=== PATIENT | female | born 1970 | race Caucasian/White ===

== ENCOUNTER → 2017-01-09 | Outpatient (CLI) | payer MEDICARE ==
[~2017-01-09] MED LIST: ASPIRIN PO; ASPIRIN81 MG; BACTRIM 400-801 TA1 PO; BENZTROPINE MESY2 MG PO; BUSPAR15 M3 PO; CLOZAPINE200 MG PO; CLOZAPINE50 MG PO; CLOZARIL; CLOZARIL PO; DESYREL50 MG PO; GLUCOPHAGE500 MG PO; GLUCOTROL PO; KEFLEX500 MG PO; KLONOPIN PO; LEXAPRO20 MG PO; LIPITOR80 MG PO; LISINOPRIL5 MG PO; LUVOX100 MG PO; METFORMIN PO; METOPROLOL SUCC25 MG PO; NEXIUM PO; OMEPRAZOLE40 MG PO; PLAVIX PO; PRILOSEC PO; PROZAC PO; PYRIDIUM PO; RISPERDAL3 MG PO; RISPERDAL4 MG PO; RISPERIDONE PO; SERZONE PO; VISCOUS LIDOCAINE PO; VITAMIN D250000 UNIT PO
== END | disposition home or self-care (01) ==
LOC: SLAB 13:06
PROVIDERS: Registered Nurse Psychiatric/Mental Health, Adult
DX: F25.1 Schizoaffective disorder, depressive type (principal); F41.1 Generalized anxiety disorder
CPT/HCPCS: 36415; 82306; 82607; 84443

== ENCOUNTER → 2017-01-16 | Outpatient (CLI) | payer MEDICARE ==
[2017-01-16 13:19] LABS: BASOPHIL% 0.4 % (0-2.5); EOSINOPHIL% 0.3 % (0.0-7.0); HEMATOCRIT 38.1 % (35.0-45.0); HEMOGLOBIN 12.4 gm/dL (12.0-16.0); LYMPHOCYTE# 1.6 X10e3 (1.0-3.5); LYMPHOCYTE% 25.7 % (17.0-45.0); MEAN CELL VOLUME 85.9 FL (83-96); MEAN CORPUSCULAR HEMOGLOBIN 28.1 PG (28-34); MEAN CORPUSCULAR HGB CONC 32.7 g/dL (30-36); MEAN PLATELET VOLUME 8.4 FL (6.5-11.5); MONOCYTE# 0.3 X10e3 (0-1.0); MONOCYTE% 5.8 % (3.0-12.0); NEUTROPHIL# 4.1 X10e3 (1.5-7.1); NEUTROPHIL% 67.8 % (40-75); PLATELET COUNT 164 X10e3 (140-420); RED BLOOD COUNT 4.44 X10e (3.90-5.30); RED CELL DISTRIBUTION WIDTH 16.2 % (11.0-15.5); WHITE BLOOD COUNT 6.1 X10e3 (4.0-10.5)
[2017-01-16 13:20] LABS: DIFF IND NO
== END | disposition home or self-care (01) ==
LOC: SLAB 12:52
PROVIDERS: Registered Nurse Psychiatric/Mental Health, Adult
DX: F25.1 Schizoaffective disorder, depressive type (principal)
CPT/HCPCS: 36415; 85025

== ENCOUNTER → 2017-02-05 | Outpatient (CLI) | payer MEDICARE ==
[2017-02-05 14:35] LABS: BASOPHIL% 0.8 % (0-2.5); EOSINOPHIL% 0.2 % (0.0-7.0); HEMATOCRIT 39.1 % (35.0-45.0); HEMOGLOBIN 12.9 gm/dL (12.0-16.0); LYMPHOCYTE# 1.8 X10e3 (1.0-3.5); LYMPHOCYTE% 29.9 % (17.0-45.0); MEAN CELL VOLUME 84.3 FL (83-96); MEAN CORPUSCULAR HEMOGLOBIN 27.9 PG (28-34); MEAN PLATELET VOLUME 7.3 FL (6.5-11.5); MONOCYTE# 0.3 X10e3 (0-1.0); MONOCYTE% 5.5 % (3.0-12.0); NEUTROPHIL# 3.9 X10e3 (1.5-7.1); NEUTROPHIL% 63.6 % (40-75); PLATELET COUNT 196 X10e3 (140-420); RED BLOOD COUNT 4.63 X10e (3.90-5.30); RED CELL DISTRIBUTION WIDTH 15.1 % (11.0-15.5); WHITE BLOOD COUNT 6.1 X10e3 (4.0-10.5)
[2017-02-05 14:37] LABS: DIFF IND NO
== END | disposition home or self-care (01) ==
LOC: SLAB 14:23
PROVIDERS: Registered Nurse Psychiatric/Mental Health, Adult
DX: F25.1 Schizoaffective disorder, depressive type (principal)
CPT/HCPCS: 36415; 85025

== ENCOUNTER 2017-03-05 19:01 | Observation (INO) | payer MEDICARE, OTHER ==
--- NOTE | ~2017-03-05 | DS ---
Unit #: [id number] #: [id number] Patient: KELBY LI [id number] [address] [place], [place] [address] [id number] I MR#: [id number] NAME: KELBY LI ROOM: 468 Age: 46 Sex: F Admission Date: 03/05/2017 : 1970 Discharge Date: 03/06/2017 Attending Physician: Ericka Ochao M.D. Primary Care Physician: Selma Aguirre M.D. DISCHARGE SUMMARY PRINCIPAL DIAGNOSES 1. Hypotension secondary to dehydration. 2. Acute kidney injury, prerenal: Discharge creatinine 1.2. 3. Lightheadedness secondary to #1 with perhaps some underlying labyrinthitis. 4. Lactic acidosis resolved, secondary to hypotension and metformin. 5. Schizoaffective disorder. 6. Diabetes mellitus type 2, noninsulin requiring. 7. Gastroesophageal reflux disease. 8. History of hypertension. 9. Coronary artery disease with 80% stenosis of the ostium of the second diagonal branch. This is not amenable to intervention. 10. Gastroesophageal reflux disease. 11. Hyperlipidemia. CLINICAL HISTORY/HOSPITAL COURSE Ms. Li is a 46-year-old female who presents to the emergency department with hypotension. Please refer to H and P for further details. The patient was given IV fluids and felt better. She was placed in observation for further evaluation. The patient's lisinopril was held. Today, orthostatic blood pressures are normal. She had a repeated episode of lightheadedness when changing position in bed but blood pressure is now running in the 150s systolic. She has had no evidence of arrhythmia and workup for a myocardial infarction has been negative. 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 I will note - patient has had no complaints of chest pain during hospitalization. The patient did have some mild lactic acidosis but has no evidence of infection. Her metformin was held and, today, lactic acid decreased from 4.6 to 1.6. Again, I think this is secondary to metformin and hypotension. Review of records from [facility] patient, on echo and or heart cath at that time, had a hyperdynamic ventricle thought to be secondary to dehydration. I suspect dehydration is the culprit of most of her symptoms though perhaps overmedication and/or taking medications may be a contributing factor. The patient denies all of these. However, encouraged patient to increase fluid intake. She will be discharged home later today off of lisinopril and, again, blood pressure can be monitored. DISCHARGE CONDITION Stable. Unit #: [id number] #: [id number] Patient: KELBY LI DISCHARGE STATUS Discharge to home. DISCHARGE MEDICATIONS 1. Desyrel 25 mg four times daily. 2. Metformin 1000 mg b.i.d. 3. Lipitor 80 mg daily. 4. Cogentin 1 mg b.i.d. 5. Clozaril 100 mg in the morning and 550 mg at bedtime. 6. Risperdal 3 mg b.i.d. 7. Metoprolol succinate 25 mg daily. 8. Aspirin 81 mg daily. 9. Plavix 75 mg daily. 10. Prilosec 40 mg daily. 11. Glucotrol 5 mg b.i.d. 12. Vitamin D2 50,000 units weekly. DISCHARGE INSTRUCTIONS The patient was instructed to follow a heart healthy diet. She can increase her activity as tolerated. FOLLOWUP Patient will follow up with her primary care provider, Dr. Aguirre, and needs re-evaluation of blood pressure at that time and, perhaps, re-initiation of lisinopril if necessary. Dictated by... Ericka Ochoa M.D. ALFONSO/guillermo TD: 03/06/2017 11:32 JOB #: [id number] DISCHARGE SUMMARY Page 1 of 1 X Ericka Ochoa MD DISCHARGE SUMMARY
--- NOTE | ~2017-03-05 | HM ---
Unit #: [id number] #: [id number] Patient: KELBY LI [id number] [address] [address] [id number] I MR#: [id number] NAME: KELBY LI : 1970 SEX: F STUDY DATE/TIME: 03/11/2017 UNIT: [facility] ROOM: [facility] STUDY DESCRIPTION: Holter monitor Attending Physician: Ericka Ochoa M.D. Primary Care Physician: Selma Aguirre M.D. CARDIOLOGY REPORT REVISED REPORT EXAM Holter monitor. DATE APPLIED 03/06/17 DATE SCANNED 03/11/[address] Britton READ BY [facility] Dizziness FINDINGS 1. The basic rhythm is normal sinus rhythm. Total beats 123,121. Average heart rate 86 per minute. Heart rate varies from 61 per minute at 5:16 to 116 per minute at 18:14. 2. Fifty isolated PVCs and one ventricular couplet noted. 3. Eight isolated PACs noted. 4. No high-grade AV blocks noted. 5. No diary with symptoms available. Dictated by... Brook Mejia/darrin TD: 03/11/2017 18:28 JOB #: [id number] CC: Melanie/shaggyision Please Delete Unit #: [id number] #: [id number] Patient: KELBY LI CARDIOLOGY REPORT Page 1 of 1 X Marcia Doherty MD HOLTER MONITOR REPORT
--- NOTE | ~2017-03-05 | EKG ---
PATIENT: KELBY LI UNIT #: [id number] Ventricular Rate: 87 BPM Atrial Rate: 87 BPM P-R Interval: 138 ms QRS Duration: 98 ms Q-T Interval: 392 ms QTC Calculation(Bezet): 471 ms P Olar: 22 degrees Calculated R Olar: 28 degrees Calculated T Olar: 138 degrees Diagnosis Line: Normal sinus rhythm Diagnosis Line: Incomplete right bundle branch block Diagnosis Line: ST and T wave abnormality, consider anterolateral Diagnosis Line: ischemia Diagnosis Line: Prolonged QT Diagnosis Line: Abnormal ECG Diagnosis Line: When compared with ECG of 28-NOV-2016 03:17, Diagnosis Line: T wave inversion now evident in Lateral leads Diagnosis Line: Confirmed by TAMICA RODRIGUES MD ([id number]) on 03/08/2017 Diagnosis Line: 10:26:35 AM INTERPRETING MD: LILIA QUINONES
--- NOTE | ~2017-03-05 | CR63 ---
[facility] A Service of [facility] & [facility] RADIOLOGY TEXT RESULTS PATIENT: KELBY LI LOCATION: [facility] 468-01 : [birth year] UNIT #: [id number] AGE: [address]: Ericka Ochoa MD SEX: F ORDER DR: [id number] [facility] [address] [place], [place] [address] [id number] I MR#: [id number] Acc #: [id number] NAME: KELBY LI : 1970 SEX: F STUDY DATE/TIME: 03/06/2017 7:05 UNIT: [facility] ROOM: [facility] STUDY DESCRIPTION: CR Chest 2 View Attending Physician: Ericka Ochoa M.D. Ordering Physician: Anabell Britton M.D. Primary Care Physician: Selma Aguirre M.D. MEDICAL IMAGING REPORT This report is preliminary unless electronic signature is present EXAM Chest, 03/06/2017, [facility]. HISTORY 46-year-old woman, hypotensive, headaches, symptoms began today. Patient short of breath. COMPARISON Portable chest, 11/28/2016. FINDINGS Two-view chest demonstrates mild cardiac enlargement. Large body habitus reduces inspiration. Bilateral lungs are expanded and clear. Costophrenic angles are preserved. IMPRESSION Large body habitus. Mild stable cardiomegaly. No acute chest finding. Dictated by... Jorge Durham M.D. THIS IS AN ELECTRONICALLY VERIFIED REPORT Jorge Durham M.D. at 03/06/2017 10:21 AM JS/miryam TD: 03/06/2017 09:32 JOB #: [id number] MEDICAL IMAGING REPORT Page 1 of 1 COPY
--- NOTE | ~2017-03-05 | EKG ---
PATIENT: KELBY LI UNIT #: [id number] Ventricular Rate: 106 BPM Atrial Rate: 106 BPM P-R Interval: 128 ms QRS Duration: 90 ms Q-T Interval: 348 ms QTC Calculation(Bezet): 462 ms P [place]is[place]: 16 degrees Calculated R [place]iskey: 129 degrees Calculated T [place]: 38 degrees Diagnosis Line: Sinus tachycardia Diagnosis Line: Left atrial enlargement Diagnosis Line: Right axis deviation Diagnosis Line: Right ventricular hypertrophy Diagnosis Line: ST and T wave abnormality, consider anterior Diagnosis Line: ischemia Diagnosis Line: Abnormal ECG Diagnosis Line: When compared with ECG of 28-NOV-2016 03:17, Diagnosis Line: No significant change was found Diagnosis Line: Confirmed by TAMICA RODRIGUES MD ([id number]) on 03/08/2017 Diagnosis Line: 10:19:58 AM INTERPRETING MD: LILIA QUINONES
--- NOTE | ~2017-03-05 | HP ---
Unit #: [id number] #: [id number] Patient: KELBY LI [id number] [address] [place], [place] [address] [id number] I MR#: [id number] NAME: KELBY LI ROOM: 468 Age: 46 Sex: F Admission Date: 03/05/2017 : 1970 Attending Physician: Anabell Britton M.D. Primary Care Physician: Selma Aguirre M.D. HISTORY AND PHYSICAL CHIEF COMPLAINT Lightheadedness, low blood pressure, acute kidney injury. HISTORY This pleasant 46-year-old female with AODM, hypertension, possible CAD, schizoaffective disorder, was transferred from [facility] emergency department for complaints of lightheadedness. Patient states that she was in her usual state of health until 3:00 yesterday afternoon. Robinson lightheaded and checked her blood pressure, which was 60/40. She went to [facility] emergency department where her blood pressure was low, was as low as 83/51. She was bolused with 2 L of saline and currently feels improved. She denies chest pain, palpitations, infectious symptoms with the above. Labs were notable for a elevated lactic acid level, acute kidney injury, and her CO2 was low. In reviewing records, which were sent, her EKG is abnormal. The patient states that she was recently admitted to [facility] 12/2016 for chest pain, and cardiac catheterization was reportedly abnormal. Will obtain records. As an aside, patient does take Glucophage. PAST MEDICAL HISTORY 1. AODM x3 years. 2. Hypertension. 3. GERD. 4. Schizoaffective disorder. 5. Reportedly abnormal cardiac catheterization performed recently at [facility]. 6. EGD 01/2011 revealing gastritis. 7. Cataract extraction. 8. ORIF right ankle fracture. 9. Cyst removed from the tonsils. ALLERGIES Phenergan, Vyvanse, Atarax, Xanax, DM, promethazine. HOME MEDICATIONS Trazodone 25 mg q.i.d.; p.r.n. aspirin 81 mg daily; clozapine 100 mg in the morning and 550 mg in the evening; Risperdal 3 mg b.i.d.; Lipitor 80 m daily; Plavix 75 mg daily; metoprolol 25 mg daily; vitamin B2 50,000 units each week; Prilosec 40 mg daily; Glucotrol 5 mg daily; lisinopril 5 mg daily; Cogentin 1 mg b.i.d.; Glucophage 1,000 mg b.i.d. FAMILY HISTORY Hypertension. Unit #: [id number] #: [id number] Patient: KELBY LI SOCIAL HISTORY The patient lives with her father. She is a lifelong nonsmoker. Does not drink alcohol or use illicit drugs. REVIEW OF SYSTEMS Notable for lightheadedness and low blood pressure, possible CAD, schizoaffective disorder, hypertension, AODM, GERD, above mentioned surgeries. All other systems were reviewed and are otherwise negative. PHYSICAL EXAMINATION GENERAL: Pleasant, moderately obese 46-year-old female currently in no acute distress. VITAL SIGNS: Again blood pressure was as low as 83/51. Current blood pressure is 147/74, pulse 96, down from 120 earlier, respirations 16, O2 saturation is 99% on room air. HEENT: Eyes - PERRLA. Extraocular muscles are intact. Pharynx is benign. NECK: Supple without adenopathy or thyromegaly. CHEST: Clear. BACK: Without CVA tenderness. CARDIAC: Normal S1 and S2, very soft systolic murmur. ABDOMEN: Bowel sounds are present. No hepatosplenomegaly, tenderness or masses. EXTREMITIES: Without clubbing, cyanosis or edema. Pedal pulses are present. No ulcers on the feet. NEUROLOGIC: Patient is awake, alert and oriented. Cranial nerves are intact. Equal strength throughout. DIAGNOSTIC STUDIES ADMISSION LABS: Hematocrit is 37, normal white count, platelet count and MCV. SMA 7 - glucose 138, creatinine 1.5, up from a creatinine of 1 two months ago. CO2 18, lactic acid 4.6, cardiac markers negative. Urine tox screen TCA. Urinalysis - trace protein. CARDIOLOGY STUDIES: EKG - sinus tachycardia, rate 106 with right ventricular hypertrophy and right axis deviation. ST wave abnormalities noted in V1 through V4. No old EKG for comparison. ASSESSMENT 1. Episode of lightheadedness and hypotension yesterday, now resolved after IV fluids. I am uncertain of the etiology. Patient has no infectious symptoms with the above. Does have an abnormal EKG and reportedly abnormal cardiac catheterization recently. Abnormal EKG. Patient states that she was recently admitted to [facility] and cardiac catheterization was abnormal. 2. Acute kidney injury. 3. Schizoaffective disorder. 4. Elevated lactic acid level likely related to low blood pressure and metformin. No evidence of infection currently. 5. AODM. 6. Hypertension. 7. GERD. PLANS 1. IV fluids. 2. Hold metformin and lisinopril. 3. Recheck EKG and labs this morning, will also check a procalcitonin Unit #: [id number] #: [id number] Patient: KELBY LI. Blood cultures are pending. 4. Hold lisinopril and metformin. 5. Obtain records and old EKG from [facility]. 6. SCDs for DVT prophylaxis. 7. Check post void bladder scan. 8. Check liver function test, along with repeat chemistries, etc. 9. Status portable chest x-ray. 10. Holter monitor and orthostatics. Dictated by Brook Ruiz/ts TD: 03/06/2017 06:20 JOB #: [id number] HISTORY AND PHYSICAL Page 1 of 1 X Anabell Britton MD X HISTORY AND PHYSICAL
[~2017-03-05 19:01] MED LIST changes: -ASPIRIN PO; -ASPIRIN81 MG; -LIPITOR80 MG PO; -LUVOX100 MG PO; -METOPROLOL SUCC25 MG PO; -PLAVIX PO; -RISPERDAL3 MG PO; -VITAMIN D250000 UNIT PO
[2017-03-05] MEDS ORDERED: ASPIRIN81 MG (19:12)
[2017-03-05] MEDS ORDERED: LUVOX100 MG PO (19:12)
[2017-03-05 20:47] LABS: BASOPHIL% 0.7 % (0-2.5); EOSINOPHIL% 0.4 % (0.0-7.0); HEMOGLOBIN 12.4 gm/dL (12.0-16.0); LYMPHOCYTE# 2.1 X10e3 (1.0-3.5); MEAN CELL VOLUME 83.1 FL (83-96); MEAN CORPUSCULAR HEMOGLOBIN 27.8 PG (28-34); MEAN CORPUSCULAR HGB CONC 33.4 g/dL (30-36); MEAN PLATELET VOLUME 8.3 FL (6.5-11.5); MONOCYTE# 0.4 X10e3 (0-1.0); MONOCYTE% 5.7 % (3.0-12.0); NEUTROPHIL# 4.1 X10e3 (1.5-7.1); NEUTROPHIL% 62.2 % (40-75); PLATELET COUNT 153 X10e3 (140-420); RED BLOOD COUNT 4.45 X10e (3.90-5.30); RED CELL DISTRIBUTION WIDTH 15.2 % (11.0-15.5); WHITE BLOOD COUNT 6.6 X10e3 (4.0-10.5)
[2017-03-05 20:48] LABS: DIFF IND NO
[2017-03-05 21:01] LABS: BUN/CREATININE RATIO 14.66; CREATININE SERUM 1.5 mg/dL (0.6-1.4); GLOM FILT RATE Estimated 40.8 mL/min (>60); POTASSIUM 4.4 mmol/L (3.5-5.1)
[2017-03-05 21:04] LABS: POC - CKMB <1.0 ng/mL (0.0-7.9); POC - TROPONIN 0.05 ng/mL (<=0.05)
[2017-03-05 22:06] LABS: URINE SOURCE CATH
[2017-03-05 22:12] LABS: URINE APPEARANCE CLEAR; URINE BILIRUBIN NEG (NEG); URINE BLOOD NEG (NEG); URINE COLOR YELLOW; URINE GLUCOSE NEG (NORM); URINE KETONE TRACE (NEG); URINE LEUKOCYTE ESTERASE NEG (NEG); URINE NITRATE NEG (NEG); URINE PROTEIN TRACE (NEG); URINE SPECIFIC GRAVITY 1.025 (1.003-1.035); URINE UROBILINOGEN 0.2 MG/DL (NORM)
[2017-03-05 22:14] LABS: MICRO INDICATED? NO
[2017-03-05 22:20] LABS: AMPHETAMINE NEG (NEG); BARBITURATES NEG (NEG); BENZODIAZEPINES NEG (NEG); COCAINE NEG (NEG); MARIJUANA NEG (NEG); OPIATES NEG (NEG); TRICYCLIC ANTIDEPRESSANTS POS (NEG); U METHADONE NEG (NEG)
[2017-03-06] MEDS ORDERED: ASPIRIN PO (01:53)
[2017-03-06] MEDS ORDERED: CLOZAPINE50 MG PO ×2 (01:57→01:58)
[2017-03-06] MEDS ORDERED: RISPERDAL3 MG PO (02:04)
[2017-03-06] MEDS ORDERED: LIPITOR80 MG PO (02:08)
[2017-03-06] MEDS ORDERED: PLAVIX PO (02:08)
[2017-03-06] MEDS ORDERED: METOPROLOL SUCC25 MG PO (02:10)
[2017-03-06] MEDS ORDERED: VITAMIN D250000 UNIT PO (02:11)
[2017-03-06 04:25] LABS: BASOPHIL% 0.6 % (0-2.5); EOSINOPHIL% 0.4 % (0.0-7.0); HEMATOCRIT 34.5 % (35.0-45.0); HEMOGLOBIN 11.3 gm/dL (12.0-16.0); LYMPHOCYTE# 2.2 X10e3 (1.0-3.5); LYMPHOCYTE% 41.1 % (17.0-45.0); MEAN CELL VOLUME 83.2 FL (83-96); MEAN CORPUSCULAR HEMOGLOBIN 27.4 PG (28-34); MEAN CORPUSCULAR HGB CONC 32.9 g/dL (30-36); MEAN PLATELET VOLUME 7.9 FL (6.5-11.5); MONOCYTE# 0.3 X10e3 (0-1.0); MONOCYTE% 5.4 % (3.0-12.0); NEUTROPHIL# 2.8 X10e3 (1.5-7.1); NEUTROPHIL% 52.5 % (40-75); PLATELET COUNT 124 X10e3 (140-420); RED BLOOD COUNT 4.14 X10e (3.90-5.30); RED CELL DISTRIBUTION WIDTH 15.2 % (11.0-15.5); WHITE BLOOD COUNT 5.3 X10e3 (4.0-10.5)
[2017-03-06 04:30] LABS: DIFF IND NO
[2017-03-06 04:36] LABS: PARTIAL THROMBOPLASTIN TIME 24.9 SECONDS (23.5-31.3); PROTHROMBIN TIME (PATIENT) 10.9 SECONDS (9.6-11.5)
[2017-03-06 04:52] LABS: ALKALINE PHOSPHATASE 71 U/L (32-92); ALT (SGPT) 26 U/L (10-40); AST (SGOT) 17 U/L (10-42); BILIRUBIN,TOTAL 0.5 mg/dL (0.2-2.0); BLOOD UREA NITROGEN 19 mg/dL (9-23); BUN/CREATININE RATIO 15.83; CALCIUM SERUM 8.8 mg/dL (8.4-10.2); CARBON DIOXIDE 22 mmol/L (22-31); CHLORIDE 110 mmol/L (100-111); CK TOTAL 93 IU/L (26-140); CREATININE SERUM 1.2 mg/dL (0.6-1.4); GLOM FILT RATE Estimated 53.4 mL/min (>60); GLUCOSE FASTING 179 mg/dL (70-110); POTASSIUM 3.9 mmol/L (3.5-5.1); PROTEIN TOTAL SERUM 6.2 g/dL (6.0-8.3); SODIUM 139 mmol/L (135-145)
[2017-03-06 05:08] LABS: PROCALCITONIN <0.05 NG/ML
[2017-03-06 05:11] LABS: %MB 1.2 % (0.0-4.0); MB 1.1 ng/ml
== END 2017-03-06 12:45 | disposition home or self-care (01) ==
LOC: SED 19:01 → SEDOF 23:37 → SED 23:37 → C4C 03-06 01:37 → SEDOF 03-06 01:37 → C4C 03-06 03:35 → SEDOF 03-06 03:35 → C4C 03-06 08:03
PROVIDERS: Emergency Medicine; Internal Medicine
DX: E86.0 Dehydration (principal); I95.89 Other hypotension; N17.9 Acute kidney failure, unspecified; R42 Dizziness and giddiness; E87.2 Acidosis; E11.9 Type 2 diabetes mellitus without complications; Z79.84 Long term (current) use of oral hypoglycemic drugs; F25.9 Schizoaffective disorder, unspecified; I49.3 Ventricular premature depolarization; I49.1 Atrial premature depolarization; I25.10 Atherosclerotic heart disease of native coronary artery without angina pectoris; K21.9 Gastro-esophageal reflux disease without esophagitis; E78.5 Hyperlipidemia, unspecified; Z79.82 Long term (current) use of aspirin; Z79.02 Long term (current) use of antithrombotics/antiplatelets; Z88.8 Allergy status to other drugs, medicaments and biological substances
CPT/HCPCS: 36415; 51702; 71020; 80048; 80053; 80307; 81003; 82308; 82550; 82553; 82947; 83605; 84484; 85025; 85610; 85730; 87040; 93005; 93225; 93226; 96360; 96361; 99285; G0378; J1815

== ENCOUNTER → 2017-03-16 | Outpatient (CLI) | payer MEDICARE ==
[~2017-03-16] MED LIST changes: +ASPIRIN PO; +ASPIRIN81 MG; +LIPITOR80 MG PO; +LUVOX100 MG PO; +METOPROLOL SUCC25 MG PO; +PLAVIX PO; +RISPERDAL3 MG PO; +VITAMIN D250000 UNIT PO
[2017-03-16 14:04] LABS: BASOPHIL% 0.3 % (0-2.5); EOSINOPHIL% 0.1 % (0.0-7.0); HEMATOCRIT 36.9 % (35.0-45.0); HEMOGLOBIN 12.2 gm/dL (12.0-16.0); LYMPHOCYTE# 1.4 X10e3 (1.0-3.5); LYMPHOCYTE% 22.9 % (17.0-45.0); MEAN CELL VOLUME 83.6 FL (83-96); MEAN CORPUSCULAR HEMOGLOBIN 27.6 PG (28-34); MEAN PLATELET VOLUME 7.7 FL (6.5-11.5); MONOCYTE# 0.3 X10e3 (0-1.0); MONOCYTE% 4.6 % (3.0-12.0); NEUTROPHIL# 4.3 X10e3 (1.5-7.1); NEUTROPHIL% 72.1 % (40-75); PLATELET COUNT 195 X10e3 (140-420); RED BLOOD COUNT 4.41 X10e (3.90-5.30); RED CELL DISTRIBUTION WIDTH 15.3 % (11.0-15.5); WHITE BLOOD COUNT 5.9 X10e3 (4.0-10.5)
[2017-03-16 14:07] LABS: DIFF IND NO
== END | disposition home or self-care (01) ==
LOC: SLAB 13:50
PROVIDERS: Registered Nurse Psychiatric/Mental Health, Adult
DX: F25.1 Schizoaffective disorder, depressive type (principal)
CPT/HCPCS: 36415; 85025

== ENCOUNTER 2017-03-29 14:38 | Emergency (ER) | payer MEDICARE, OTHER ==
--- NOTE | ~2017-03-29 | CR72 ---
[facility] A Service of [facility] & [facility] RADIOLOGY TEXT RESULTS PATIENT: KELBY LI LOCATION: [facility] : [birth year] UNIT #: [id number] AGE: [address]: Rachelle Haji MD SEX: F ORDER DR: [id number] [facility] [address] [place], [place] [address] [id number] E MR#: [id number] Acc #: [id number] NAME: KELBY LI : 1970 SEX: F STUDY DATE/TIME: 03/29/2017 15:19 UNIT: [facility] ROOM: STUDY DESCRIPTION: CR Chest Single View Portable Attending Physician: Rachelle Haji M.D. Ordering Physician: Rachelle Haji M.D. Primary Care Physician: Selma Aguirre M.D. MEDICAL IMAGING REPORT This report is preliminary unless electronic signature is present EXAM Portable chest x-ray 03/29/2017. HISTORY Altered mental status. Short of air. Altered mental status, possibly taken too many psych meds today. TECHNIQUE AP radiograph of the chest presented. COMPARISON Comparison 03/06/2017. FINDINGS Stable cardiac enlargement. Lung volumes moderate to low. Patchy and linear densities left lung base adjacent to diaphragm, likely atelectatic in nature. Small focus of pneumonitis not excluded. Remainder of lungs clear. No pleural effusion or pneumothorax and no suspicious nodule. Visualized upper abdomen unremarkable. Dictated by... David Fuentes M.D. THIS IS AN ELECTRONICALLY VERIFIED REPORT David Fuentes M.D. at 03/30/2017 5:59 PM JAMES/fortino TD: 03/29/2017 18:45 JOB #: [id number] MEDICAL IMAGING REPORT Page 1 of 1 COPY
--- NOTE | ~2017-03-29 | EKG ---
PATIENT: KELBY LI UNIT #: [id number] Ventricular Rate: 90 BPM Atrial Rate: 90 BPM P-R Interval: 136 ms QRS Duration: 92 ms Q-T Interval: 382 ms QTC Calculation(Bezet): 467 ms P [place]: 26 degrees Calculated R [place]: 39 degrees Calculated T [place]: 48 degrees Diagnosis Line: Normal sinus rhythm Diagnosis Line: Possible Left atrial enlargement Diagnosis Line: Incomplete right bundle branch block Diagnosis Line: ST and T wave abnormality, consider anterolateral Diagnosis Line: ischemia Diagnosis Line: Prolonged QT Diagnosis Line: Abnormal ECG Diagnosis Line: When compared with ECG of 06-MAR-2017 05:51, Diagnosis Line: No significant change was found Diagnosis Line: Confirmed by AILSHA VELIZ MD ([id number]) on 03/29/2017 Diagnosis Line: 6:59:19 PM INTERPRETING MD: KEREN QUINONES
--- NOTE | ~2017-03-29 | CT71 ---
[facility] A Service of [facility] RADIOLOGY TEXT RESULTS PATIENT: KELBY LI LOCATION: [facility] : [birth year] UNIT #: [id number] AGE: [address]: Rachelle Haji MD SEX: F ORDER DR: [id number] [facility] [address] [place], [place] [address] [id number] E MR#: [id number] Acc #: [id number] NAME: KELBY LI : 1970 SEX: F STUDY DATE/TIME: 03/29/2017 16:47 UNIT: [facility] ROOM: STUDY DESCRIPTION: CT Head Wo Contrast Attending Physician: Rachelle Haji M.D. Ordering Physician: Rachelle Haji M.D. Primary Care Physician: Selma Aguirre M.D. MEDICAL IMAGING REPORT This report is preliminary unless electronic signature is present EXAM CT head without contrast dated 03/29/2017. COMPARISON CT head without contrast dated 02/08/2012. HISTORY New onset of confusion. Patient might have taken too many psych medications. Started today. TECHNIQUE CT of the head was obtained without contrast in the axial plane, as per the protocol. This CT exam was performed with one or more of the following radiation dose reduction techniques: automatic exposure control, adjustment of mA and/or kV according to patient size, and iterative reconstruction. FINDINGS No acute intracranial hemorrhage, space-occupying mass, mass effect, midline shift or hydrocephalus is seen. Nasal septum is slightly deviated to the right. Imaged orbits with the ocular structures, mastoids and paranasal sinuses are unremarkable. Bones appear to be grossly within normal limits, too. IMPRESSION Motion artifact limits evaluation of the images in the base of the brain. After giving allowances to it, no obvious significant intracranial abnormality is seen. Dictated by... Shad Amado M.D. [facility] A Service of [facility] RADIOLOGY TEXT RESULTS PATIENT: KELBY LI LOCATION: [facility] : [birth year] UNIT #: [id number] AGE: [address]: Rachelle Haji MD SEX: F ORDER DR: THIS IS AN ELECTRONICALLY VERIFIED REPORT Shad Amado M.D. at 03/30/2017 3:13 PM CPR/fortino TD: 03/29/2017 19:26 JOB #: [id number] MEDICAL IMAGING REPORT Page 1 of 1 COPY
[2017-03-29 15:51] LABS: URINE SOURCE CLEAN CATCH
[2017-03-29 15:56] LABS: BASOPHIL% 0.4 % (0-2.5); EOSINOPHIL% 0.1 % (0.0-7.0); HEMATOCRIT 39.4 % (35.0-45.0); HEMOGLOBIN 12.6 gm/dL (12.0-16.0); LYMPHOCYTE# 1.1 X10e3 (1.0-3.5); LYMPHOCYTE% 14.9 % (17.0-45.0); MEAN CORPUSCULAR HEMOGLOBIN 26.9 PG (28-34); MEAN PLATELET VOLUME 8.6 FL (6.5-11.5); MONOCYTE# 0.4 X10e3 (0-1.0); MONOCYTE% 4.9 % (3.0-12.0); NEUTROPHIL# 6.2 X10e3 (1.5-7.1); NEUTROPHIL% 79.7 % (40-75); PLATELET COUNT 169 X10e3 (140-420); RED BLOOD COUNT 4.68 X10e (3.90-5.30); RED CELL DISTRIBUTION WIDTH 15.5 % (11.0-15.5); WHITE BLOOD COUNT 7.7 X10e3 (4.0-10.5)
[2017-03-29 15:58] LABS: URINE APPEARANCE CLOUDY; URINE BILIRUBIN NEG (NEG); URINE BLOOD NEG (NEG); URINE COLOR YELLOW; URINE GLUCOSE NEG (NEG); URINE KETONE NEG (NEG); URINE LEUKOCYTE ESTERASE 3+ (NEG); URINE NITRATE NEG (NEG); URINE PROTEIN NEG (NEG)
[2017-03-29 16:00] LABS: CULTURE INDICATED? YES; DIFF IND NO; URINE BACTERIA AUWI 3+ (NEGATIVE); URINE SQUAMOUS EPITHELIAL CELL MOD /[HPF]; UWBCS1 AUWI 25-50 (0-5)
[2017-03-29 16:23] LABS: ALBUMIN SERUM 4.6 g/dL (3.5-5.0); ALKALINE PHOSPHATASE 85 U/L (32-92); ALT (SGPT) 32 U/L (10-40); AST (SGOT) 30 U/L (10-42); BILIRUBIN, DIRECT 0.2 mg/dL (0.0-0.2); BILIRUBIN,INDIRECT 0.3 mg/dL (0.0-0.9); BILIRUBIN,TOTAL 0.5 mg/dL (0.2-2.0); BLOOD UREA NITROGEN 11 mg/dL (9-23); CALCIUM SERUM 9.3 mg/dL (8.4-10.2); CARBON DIOXIDE 22 mmol/L (22-31); CHLORIDE 105 mmol/L (100-111); GLOM FILT RATE Estimated 66.6 mL/min (>60); GLUCOSE FASTING 148 mg/dL (70-110); POTASSIUM 5.1 mmol/L (3.5-5.1); PROTEIN TOTAL SERUM 7.3 g/dL (6.0-8.3); SODIUM 140 mmol/L (135-145)
[2017-03-29 16:28] LABS: ACETAMINOPHEN <10 ug/mL; ALCOHOL BLOOD <5 mg/dL (0)
[2017-03-29 16:29] LABS: AMPHETAMINE NEG (NEG); BARBITURATES NEG (NEG); BENZODIAZEPINES NEG (NEG); COCAINE NEG (NEG); MARIJUANA NEG (NEG); OPIATES NEG (NEG); TRICYCLIC ANTIDEPRESSANTS NEG (NEG); U METHADONE NEG (NEG)
== END 2017-03-29 21:00 | disposition home or self-care (01) ==
LOC: CED 14:38
PROVIDERS: Emergency Medicine
DX: T50.901A Poisoning by unspecified drugs, medicaments and biological substances, accidental (unintentional), initial encounter (principal); Z88.8 Allergy status to other drugs, medicaments and biological substances; Z79.899 Other long term (current) drug therapy; Z79.82 Long term (current) use of aspirin
CPT/HCPCS: 36415; 70450; 71010; 80048; 80076; 80307; 81003; 82140; 82947; 85025; 85610; 87086; 93005; 99284; G0480

== ENCOUNTER → 2017-04-13 | Outpatient (CLI) | payer MEDICARE ==
[2017-04-13 14:22] LABS: BASOPHIL% 0.3 % (0-2.5); EOSINOPHIL% 0.1 % (0.0-7.0); HEMATOCRIT 34.5 % (35.0-45.0); HEMOGLOBIN 11.3 gm/dL (12.0-16.0); LYMPHOCYTE# 1.4 X10e3 (1.0-3.5); LYMPHOCYTE% 18.4 % (17.0-45.0); MEAN CELL VOLUME 83.7 FL (83-96); MEAN CORPUSCULAR HEMOGLOBIN 27.5 PG (28-34); MEAN CORPUSCULAR HGB CONC 32.8 g/dL (30-36); MEAN PLATELET VOLUME 7.3 FL (6.5-11.5); MONOCYTE# 0.4 X10e3 (0-1.0); MONOCYTE% 4.9 % (3.0-12.0); NEUTROPHIL% 76.3 % (40-75); PLATELET COUNT 215 X10e3 (140-420); RED BLOOD COUNT 4.12 X10e (3.90-5.30); RED CELL DISTRIBUTION WIDTH 16.4 % (11.0-15.5); WHITE BLOOD COUNT 7.9 X10e3 (4.0-10.5)
[2017-04-13 14:24] LABS: DIFF IND NO
== END | disposition home or self-care (01) ==
LOC: SLAB 09:03
PROVIDERS: Registered Nurse Psychiatric/Mental Health, Adult
DX: F25.1 Schizoaffective disorder, depressive type (principal)
CPT/HCPCS: 36415; 85025

== ENCOUNTER → 2017-05-11 | Outpatient (CLI) | payer MEDICARE ==
[2017-05-11 14:10] LABS: BASOPHIL% 0.4 % (0-2.5); EOSINOPHIL% 0.1 % (0.0-7.0); HEMATOCRIT 33.7 % (35.0-45.0); HEMOGLOBIN 11.1 gm/dL (12.0-16.0); LYMPHOCYTE# 1.3 X10e3 (1.0-3.5); LYMPHOCYTE% 22.3 % (17.0-45.0); MEAN CELL VOLUME 82.8 FL (83-96); MEAN CORPUSCULAR HEMOGLOBIN 27.3 PG (28-34); MEAN CORPUSCULAR HGB CONC 32.9 g/dL (30-36); MEAN PLATELET VOLUME 7.3 FL (6.5-11.5); MONOCYTE# 0.3 X10e3 (0-1.0); MONOCYTE% 5.3 % (3.0-12.0); NEUTROPHIL# 4.1 X10e3 (1.5-7.1); NEUTROPHIL% 71.9 % (40-75); PLATELET COUNT 191 X10e3 (140-420); RED BLOOD COUNT 4.06 X10e (3.90-5.30); RED CELL DISTRIBUTION WIDTH 16.6 % (11.0-15.5); WHITE BLOOD COUNT 5.7 X10e3 (4.0-10.5)
[2017-05-11 14:11] LABS: DIFF IND NO
== END | disposition home or self-care (01) ==
LOC: SLAB 14:01
PROVIDERS: Registered Nurse Psychiatric/Mental Health, Adult
DX: F25.1 Schizoaffective disorder, depressive type (principal)
CPT/HCPCS: 36415; 85025

== ENCOUNTER → 2017-06-08 | Outpatient (CLI) | payer MEDICARE, OTHER ==
[2017-06-08 15:21] LABS: BASOPHIL% 0.5 % (0-2.5); DIFF IND NO; EOSINOPHIL% 0.1 % (0.0-7.0); HEMATOCRIT 36.3 % (35.0-45.0); HEMOGLOBIN 11.8 gm/dL (12.0-16.0); LYMPHOCYTE% 29.8 % (17.0-45.0); MEAN CELL VOLUME 82.6 FL (83-96); MEAN CORPUSCULAR HEMOGLOBIN 26.9 PG (28-34); MEAN CORPUSCULAR HGB CONC 32.5 g/dL (30-36); MEAN PLATELET VOLUME 8.4 FL (6.5-11.5); MONOCYTE# 0.4 X10e3 (0-1.0); MONOCYTE% 5.8 % (3.0-12.0); NEUTROPHIL# 4.4 X10e3 (1.5-7.1); NEUTROPHIL% 63.8 % (40-75); PLATELET COUNT 169 X10e3 (140-420); RED BLOOD COUNT 4.39 X10e (3.90-5.30); RED CELL DISTRIBUTION WIDTH 15.5 % (11.0-15.5); WHITE BLOOD COUNT 6.9 X10e3 (4.0-10.5)
== END | disposition home or self-care (01) ==
LOC: SLAB 15:05
PROVIDERS: Registered Nurse Psychiatric/Mental Health, Adult
DX: F20.9 Schizophrenia, unspecified (principal)
CPT/HCPCS: 36415; 85025

== ENCOUNTER → 2017-06-18 | Outpatient (CLI) | payer MEDICARE, OTHER ==
--- NOTE | ~2017-06-18 | MY29 ---
[facility] A Service of [facility] & [facility] RADIOLOGY TEXT RESULTS PATIENT: KELBY LI LOCATION: [facility] : [birth year] UNIT #: [id number] AGE: [address]: Selma Aguirre MD SEX: F ORDER DR: [id number] [facility] [address] [place], [place] [address] [id number] O MR#: [id number] Acc #: [id number] NAME: KELBY LI : 1970 SEX: F STUDY DATE/TIME: 06/18/2017 12:53 UNIT: [facility] ROOM: STUDY DESCRIPTION: MY DENNIS SCREENING W/ CAD BILAT Attending Physician: Selma Aguirre M.D. Referring Physician: Selma Aguirre M.D. Ordering Physician: Selma Aguirre M.D. Primary Care Physician: Selma Aguirre M.D. MEDICAL IMAGING REPORT This report is preliminary unless electronic signature is present EXAM Bilateral digital screening mammogram with CAD COMPARISON 05/12/2016, 10/13/2015, 03/18/2015, 02/19/2015, 02/13/2014, 12/31/2012, 11/17/2011, 09/02/2010, 08/27/2009, 07/17/2008, 04/27/2006. INDICATIONS Breast cancer screening. 46-year-old asymptomatic female, who reports her mother with postmenopausal breast cancer. FINDINGS There are scattered fibroglandular densities. There are no suspicious findings in the left breast. The right MLO view is significantly limited by motion. IMPRESSION 1. No mammographic evidence of malignancy in the left breast. 2. Significantly limited right MLO view due to motion. Repeat is recommended at no cost to the patient. An addendum will be performed upon repeat imaging. BIRADS: 0 Technical recall. Patients over the age of 40 are entered into a reminder system with target due date for the next mammogram. A result letter will also be sent to the patient. Dictated by... Christopher Winter M.D. [facility] A Service of [facility] & [facility] RADIOLOGY TEXT RESULTS PATIENT: KELBY LI LOCATION: [facility] : [birth year] UNIT #: [id number] AGE: [address]: Selma Aguirre MD SEX: F ORDER DR: THIS IS AN ELECTRONICALLY VERIFIED REPORT Christopher Winter M.D. at 06/26/2017 2:37 AM BLM/pcl TD: 06/18/2017 23:22 JOB #: [id number] MEDICAL IMAGING REPORT Page 1 of 1 COPY
== END | disposition home or self-care (01) ==
LOC: CWCC 06-04 14:30
DX: Z12.31 Encounter for screening mammogram for malignant neoplasm of breast (principal); Z80.3 Family history of malignant neoplasm of breast
CPT/HCPCS: G0202

== ENCOUNTER → 2017-06-21 | Outpatient (CLI) | payer MEDICARE, OTHER ==
--- NOTE | ~2017-06-21 | MY28 ---
[facility] A Service of [facility] & [facility] RADIOLOGY TEXT RESULTS PATIENT: KELBY LI LOCATION: [facility] : [birth year] UNIT #: [id number] AGE: [address]: Selma Aguirre MD SEX: F ORDER DR: [id number] [facility] [address] [place], [place] [address] [id number] O MR#: [id number] Acc #: [id number] NAME: KELBY LI : 1970 SEX: F STUDY DATE/TIME: 06/21/2017 13:57 UNIT: [facility] ROOM: STUDY DESCRIPTION: MY DENNIS SCREEN W/ CAD UNI RT Attending Physician: Selma Aguirre M.D. Referring Physician: Selma Aguirre M.D. Ordering Physician: Selma Aguirre M.D. Primary Care Physician: Selma Aguirre M.D. MEDICAL IMAGING REPORT This report is preliminary unless electronic signature is present REVISED REPORT SEE ADDENDUM EXAM Bilateral digital screening mammogram with CAD COMPARISON 05/12/2016, 10/13/2015, 03/18/2015, 02/19/2015, 02/13/2014, 12/31/2012, 11/17/2011, 09/02/2010, 08/27/2009, 07/17/2008, 04/27/2006. INDICATIONS Breast cancer screening. 46-year-old asymptomatic female, who reports her mother with postmenopausal breast cancer. FINDINGS There are scattered fibroglandular densities. There are no suspicious findings in the left breast. The right MLO view is significantly limited by motion. IMPRESSION 1. No mammographic evidence of malignancy in the left breast. 2. Significantly limited right MLO view due to motion. Repeat is recommended at no cost to the patient. An addendum will be performed upon repeat imaging. BIRADS: 0 Technical recall. Patients over the age of 40 are entered into a reminder system with target due date for the next mammogram. A result letter will also be sent to the patient. [facility] A Service of [facility] & [facility] RADIOLOGY TEXT RESULTS PATIENT: KELBY LI [id number] [birth year] UNIT #: [id number] AGE: [address]: Selma Aguirre MD SEX: F ORDER DR: Dictated by... Christopher Winter M.D. THIS IS AN ELECTRONICALLY VERIFIED REPORT Christopher Winter M.D. at 06/26/2017 2:37 AM BLM/pcl TD: 06/18/2017 23:22 JOB #: [id number] ADDENDUM A technical repeat MLO view of the right breast was performed. There are benign calcifications. Faint benign-appearing nodularity in the right breast is unchanged from prior studies dating back to at least 2013. A screening mammogram in 1 year is recommended. Findings were discussed with the patient here in the Department prior to her departure. BIRADS: 2 Benign finding. ADDENDUM TO: JOB [id number], 06/18/2017 Dictated by... Robert Coughlin M.D. THIS IS AN ELECTRONICALLY VERIFIED REPORT Robert Coughlin M.D. at 06/27/2017 3:32 PM CARMEN/fortino TD: 06/21/2017 17:00 JOB #: [id number] CC: Melanie/invision Please Delete MEDICAL IMAGING REPORT Page 1 of 1 COPY
== END | disposition home or self-care (01) ==
LOC: CWCC 13:20
DX: Z12.31 Encounter for screening mammogram for malignant neoplasm of breast (principal); R92.1 Mammographic calcification found on diagnostic imaging of breast; Z80.3 Family history of malignant neoplasm of breast
CPT/HCPCS: G0202

== ENCOUNTER → 2017-07-02 | Outpatient (CLI) | payer MEDICARE, OTHER ==
[2017-07-02 11:47] LABS: BASOPHIL% 0.5 % (0-2.5); DIFF IND NO; HEMATOCRIT 38.3 % (35.0-45.0); HEMOGLOBIN 12.5 gm/dL (12.0-16.0); LYMPHOCYTE# 1.5 X10e3 (1.0-3.5); LYMPHOCYTE% 30.6 % (17.0-45.0); MEAN CORPUSCULAR HEMOGLOBIN 26.6 PG (28-34); MEAN CORPUSCULAR HGB CONC 32.8 g/dL (30-36); MEAN PLATELET VOLUME 9.5 FL (6.5-11.5); MONOCYTE# 0.3 X10e3 (0-1.0); MONOCYTE% 5.4 % (3.0-12.0); NEUTROPHIL# 3.2 X10e3 (1.5-7.1); NEUTROPHIL% 63.5 % (40-75); PLATELET COUNT 125 X10e3 (140-420); RED BLOOD COUNT 4.72 X10e (3.90-5.30); RED CELL DISTRIBUTION WIDTH 15.2 % (11.0-15.5)
== END | disposition home or self-care (01) ==
LOC: SLAB 11:34
PROVIDERS: Registered Nurse Psychiatric/Mental Health, Adult
DX: F20.9 Schizophrenia, unspecified (principal)
CPT/HCPCS: 36415; 85025